=== PATIENT | female | born 1955 | race Caucasian/White ===

== ENCOUNTER → 2017-07-25 10:32 | Outpatient (CLI) | payer OTHER, SELFPAY ==
[2017-07-25 12:44] LABS: AST(SGOT) 19 U/L (15-37); Alanine Aminotransfer ALT/SGPT 35 U/L (13-56); Albumin, Serum 3.5 g/dL (3.2-5.0); Alkaline Phosphatase 178 U/L (45-117); Bilirubin, Direct 0.19 mg/dL (0.00-0.30); Cholesterol 231 mg/dL (200); High Density Lipoprotein 68 mg/dL; Protein, Total 7.5 g/dL (6.4-8.2); Triglycerides 121 mg/dL; Very Low Density Lipoprotein 24 mg/dL (5-40)
== END ==
PROVIDERS: Family Provider Family Medicine; PCP Family Medicine; Visit Provider Internal Medicine Cardiovascular Disease
DX: E78.5 Hyperlipidemia, unspecified (principal); Z79.899 Other long term (current) drug therapy
CPT/HCPCS: 36415; 80061; 80076

== ENCOUNTER → 2018-01-26 10:49 | Outpatient (CLI) | payer OTHER, SELFPAY ==
[2018-01-26 12:31] LABS: Microalbumin:Creatinine Ratio 9.8 mg/g CRE (<30 mg/g CRE)
[2018-01-26 12:36] LABS: Thyroid Stim Hormone (TSH) 1.22 uIU/mL (0.358-3.74)
== END ==
LOC: MTLAB 10:52
PROVIDERS: Family Provider Family Medicine; PCP Family Medicine; Visit Provider Family Medicine
DX: E11.9 Type 2 diabetes mellitus without complications (principal); E03.9 Hypothyroidism, unspecified
CPT/HCPCS: 36415; 82043; 82570; 84443

== ENCOUNTER → 2018-08-17 12:14 | Outpatient (CLI) | payer BC, SELFPAY ==
[2018-08-17 11:51] VITALS: BMI 38.4
[2018-08-17 13:05] LABS: AST(SGOT) 21 U/L (15-37); Alanine Aminotransfer ALT/SGPT 27 U/L (13-56); Albumin, Serum 3.7 g/dL (3.2-5.0); Alkaline Phosphatase 166 U/L (45-117); Bilirubin, Direct 0.23 mg/dL (0.00-0.30); Cholesterol 221 mg/dL (200); Globulin 4.1 g/dL (2.2-4.2); High Density Lipoprotein 71 mg/dL; Protein, Total 7.8 g/dL (6.4-8.2); Triglycerides 212 mg/dL; Very Low Density Lipoprotein 42 mg/dL (5-40)
== END ==
PROVIDERS: Family Provider Family Medicine; PCP Family Medicine; Referring Provider Internal Medicine Cardiovascular Disease; Visit Provider Internal Medicine Cardiovascular Disease
DX: E78.5 Hyperlipidemia, unspecified (principal)
CPT/HCPCS: 36415; 80061; 80076

== ENCOUNTER → 2018-10-22 16:16 | Outpatient (CLI) | payer BC, SELFPAY ==
[2018-08-17 11:51] VITALS: BMI 38.4
[2018-10-22 18:30] LABS: Alkaline Phosphatase 219 U/L (45-117); GGTP 173 U/L (5-55)
== END ==
LOC: MTLAB 16:17
PROVIDERS: Family Provider Family Medicine; PCP Family Medicine; Referring Provider Family Medicine; Visit Provider Family Medicine
DX: R74.8 Abnormal levels of other serum enzymes (principal)
CPT/HCPCS: 36415; 82977; 84075

== ENCOUNTER → 2018-10-29 11:04 | Outpatient (CLI) | payer BC, SELFPAY ==
[2018-08-17 11:51] VITALS: BMI 38.4
[2018-10-30 20:06] LABS: Alkaline Phosphatase, Serum 191 IU/L (39-117); Bone Fraction 16 % (14-68); Liver Fraction 76 % (18-85)
[2018-11-02 11:40] LABS: Intestinal Fraction 8 % (0-18)
== END ==
LOC: MFPLAB 11:05
PROVIDERS: Family Provider Family Medicine; PCP Family Medicine; Referring Provider Family Medicine; Visit Provider Family Medicine
DX: R74.8 Abnormal levels of other serum enzymes (principal)
CPT/HCPCS: 36415; 84075; 84080

== ENCOUNTER → 2018-11-24 07:47 | Outpatient (CLI) | payer BC, SELFPAY ==
[2018-08-17 11:51] VITALS: BMI 38.4
--- NOTE | 2018-11-24 07:52 | US_ITS ---
STUDY: ABDOMINAL ULTRASOUND - RIGHT UPPER QUADRANT REASON FOR VISIT: Female, 63 years old. Elevated LFTs TECHNIQUE: Ultrasound evaluation of the right upper quadrant was performed with real-time and static gordon-scale imaging. TECHNICAL QUALITY: Adequate. COMPARISON: None. FINDINGS: Liver: The liver measures 17 cm. There is diffusely increased echogenicity of the liver. The bile ducts are within normal limits. There is hepatic color flow. The direction of portal flow is hepatopetal. There is no demonstrated mass lesion. Gallbladder: Not visualized status post cholecystectomy. Common Bile Duct (C.B.D.): The common bile duct measures 5.7 mm. Pancreas: Normal size of the head, body and tail of the pancreas. There is diffusely increased echogenicity of the pancreas which may be consistent with atrophic fatty infiltrated changes or chronic pancreatitis.. There is no demonstrated pancreatic mass or cyst. Right Kidney: Normal size of the right kidney. The right kidney measures 11 x 5.5 x 3.8 cm. Normal renal cortex. The right cortex measures 1.2 cm. There is no demonstrated renal mass or cyst. There is no right hydronephrosis. US/Abdomen Limited IMPRESSION: Hepatomegaly and diffuse fatty infiltration of the liver. Status post cholecystectomy Electronically Signed: Boom Ling MD at 16:56 EDT , Service support ,
== END ==
PROVIDERS: Family Provider Family Medicine; PCP Family Medicine; Referring Provider Family Medicine; Visit Provider Family Medicine
DX: R74.8 Abnormal levels of other serum enzymes (principal)
CPT/HCPCS: 76705

== ENCOUNTER → 2018-12-25 14:23 | Outpatient (CLI) | payer BC, SELFPAY ==
[2018-08-17 11:51] VITALS: BMI 38.4
[2018-12-25 16:28] LABS: AST(SGOT) 21 U/L (15-37); Alanine Aminotransfer ALT/SGPT 38 U/L (13-56); Albumin, Serum 3.6 g/dL (3.2-5.0); Alkaline Phosphatase 179 U/L (45-117); Cholesterol 221 mg/dL (200); GGTP 93 U/L (5-55); Globulin 4.1 g/dL (2.2-4.2); High Density Lipoprotein 77 mg/dL; Protein, Total 7.7 g/dL (6.4-8.2); Triglycerides 173 mg/dL; Very Low Density Lipoprotein 35 mg/dL (5-40)
[2018-12-29 13:58] LABS: ANTINUCLEAR ANTIBODIES DIRECT Negative (Negative); Anti-Mitochondrial AB <20.0 Units (0.0-20.0); Anti-Smooth Muscle ABS 3 Units (0-19)
== END ==
LOC: MTLAB 14:24
PROVIDERS: Family Provider Family Medicine; PCP Family Medicine; Referring Provider Internal Medicine Gastroenterology; Visit Provider Internal Medicine Gastroenterology
DX: K75.9 Inflammatory liver disease, unspecified (principal); E78.5 Hyperlipidemia, unspecified
CPT/HCPCS: 36415; 80061; 80076; 82977; 83516; 86038

== ENCOUNTER → 2019-06-04 09:44 | Outpatient (CLI) | payer BC, SELFPAY ==
[2019-04-01 11:08] VITALS: BMI 40.1
[2019-06-04 13:18] LABS: Anion Gap 7 (5-15); BUN 23 mg/dL (7-18); BUN/Creat Ratio 20.7 RATIO (10-20); Calcium,Total 9.9 mg/dL (8.5-10.1); Chloride 101 mmol/L (98-107); Creatinine, Serum 1.11 mg/dL (0.55-1.02); EST Glomerular Filtration Rate 52 mL/min (>60); Est Glom Filt Rate - Afr Amer 63 mL/min (>60); Glucose 168 mg/dL (74-106); Potassium 3.8 mmol/L (3.5-5.1); Sodium Level 136 mmol/L (136-145)
== END ==
LOC: MFPLAB 09:45
PROVIDERS: Family Provider Family Medicine; PCP Family Medicine; Referring Provider Family Medicine; Visit Provider Family Medicine
DX: E11.9 Type 2 diabetes mellitus without complications (principal)
CPT/HCPCS: 36415; 80048

== ENCOUNTER → 2019-06-17 09:51 | Outpatient (CLI) | payer BC, SELFPAY ==
[2019-04-01 11:08] VITALS: BMI 40.1
--- NOTE | 2019-06-17 09:53 | ECHOCS_ITS ---
Reason For Study: DYSPNEA/SOB Procedure This was a 2D Doppler, Color Flow transthoracic echocardiogram. The study was technically difficult. Due to body habitus. Contrast injection was performed. Exam performed in department. Left Ventricle Normal size and thickness. The estimated ejection fraction is 65 %. Stage 1 diastolic dysfunction. No regional wall motion abnormalities noted. Right Ventricle Normal size and thickness. Normal systolic function. Atria The left atrium is mildly enlarged. Normal right atrium. Normal atrial septum. Mitral Valve The mitral valve is structurally normal. No prolapse or stenosis seen. Tricuspid Valve Normal tricuspid valve. Trivial tricuspid valve insufficiency. Right ventricular systolic pressure estimated to be 25 mmHg. Aortic Valve Trisinus/trileaflet aortic valve. Normal aortic valve. Pulmonic Valve Normal pulmonic valve. Great Vessels Normal aortic root. Normal arch. Normal inferior vena cava. Inferior vena cava collapse with sniff. Pericardium/Pleural No pericardial effusion. Medication 22 gauge I.V. with prn adaptor inserted into left arm. Diluted definity 4.0ml given slow IV push to enhance endocardial definition. MMode/2D Measurements & Calculations LVIDd: 4.8 cm IVSd: 0.97 cm Ao root diam: 3.3 cm LVIDs: 3.1 cm LVPWd: 1.1 cm RVDd: 3.1 cm FS: 34.5 % LAV(MOD-bp): 69.9 ml LA A4 area: 23.3 cm2 LA dimension(2D): 3.8 cm LAV(MOD-bp) Indexed: 34.4 ml/m2 LAV(MOD-sp2): 62.7 ml LAV(MOD-sp4): 74.7 ml RA A4 area: 14.5 cm2 Time Measurements MV dec time: 0.21 sec Doppler Measurements & Calculations MV E max pierce: 86.3 cm/sec Lat Peak E' Pierce: 10.1 cm/sec Med Peak E' Pierce: 6.2 cm/sec MV A max pierce: 91.4 cm/sec E/E' lat: 8.5 E/E' med: 13.9 MV E/A: 0.94 Ao V2 max: 161.2 cm/sec LV V1 max: 104.2 cm/sec PA V2 max: 111.5 cm/sec Ao max P.4 mmHg LV V1 max P.3 mmHg Ao V2 mean: 106.9 cm/sec LV V1 mean P.4 mmHg Ao mean P.3 mmHg LV V1 mean: 73.7 cm/sec Ao V2 VTI: 40.8 cm LV V1 VTI: 29.5 cm TR max pierce: 221.9 cm/sec TR max P.7 mmHg Interpretation Summary The estimated ejection fraction is 65 %. Stage 1 diastolic dysfunction. The left atrium is mildly enlarged. Trivial tricuspid valve insufficiency. Right ventricular systolic pressure estimated to be 25 mmHg. Compared to echo report dated 11/09/2015, no appreciable changes noted. The study was technically difficult. Contrast injection was performed. Ordering Physician: Kenan Whitehead Referring Physician: Janneth Frederick Performed By: Loly Charlton RDCS, RVT
== END ==
LOC: CVS 09:53
PROVIDERS: Family Provider Family Medicine; PCP Family Medicine; Referring Provider Internal Medicine Cardiovascular Disease; Visit Provider Internal Medicine Cardiovascular Disease
DX: R06.00 Dyspnea, unspecified (principal); R06.02 Shortness of breath; I10 Essential (primary) hypertension; G47.33 Obstructive sleep apnea (adult) (pediatric); E66.9 Obesity, unspecified
CPT/HCPCS: 93306; Q9957; A4216; C8929

== ENCOUNTER → 2019-06-25 09:31 | Outpatient (CLI) | payer BC, SELFPAY ==
[2019-04-01 11:08] VITALS: BMI 40.1
--- NOTE | 2019-06-25 09:32 | STEWCON_ITS ---
Reason For Study: Dyspnea On Exertion Stress Results Protocol: Modified [place]ar Protocol With Definity Maximum Predicted HR: 155 bpm Target HR: 132 bpm % Maximum Predicted HR: 82 % DurationHeart Rate Stage (mm:ss) (bpm) BP Comment Baseline 71 148/70No Chest Pain; 3 ML Diluted Definity Given Modified [place] Protocol Stage 0 3:00 106 172/76No Chest Pain; Mild Dyspnea Modified [place] Protocol Stage 1/2 3:00 109 184/70No Chest Pain; Moderate Dyspnea Modified [place] Protocol Stage 1 3:00 117 210/74No Chest Pain; Moderate To Severe Dyspnea Modified [place] Protocol Stage 2 0:12 127 / No Chest Pain; Severe Dyspnea Recovery 74 154/74No Chest Pain; No Dyspnea Stress Duration: 9:12 mm:ss Maximum Stress HR: 127 bpm METS: 4 Baseline Echocardiogram Findings The estimated ejection fraction is 65 %. Stress Echo Wall motion Data Resting WM Intermediate WM Stress WM Resting Wall Motion Wall Motion Stress No regional wall motion No regional wall motion abnormalities noted. abnormalities noted. EKG Data The baseline ECG displays normal sinus rhythm. During stress, there were no ST or T wave changes noted to suggest ischemia. No clinical angina was noted. No arrhythmias noted. Interpretation Summary The estimated ejection fraction is 65 %. Normal, adequate, modified [place]ar treadmill echocardiogram. Negative for ischemia by EKG and echocardiographic criteria. No anginal symptoms noted. No arrhythmias noted. Hypertensive blood pressure response to exercise. Average exercise capacity for age. Final LVEF is 75%. Test terminated due to dyspnea. Decrease sensitivity due to poor echo windows requiring Definity agent. Patient tolerated procedure well. The study was technically difficult. Contrast injection was performed. Ordering Physician: Kenan Whitehead Referring Physician: Janneth Frederick Performed By: Bella Taylor, BREANA, RVT
== END ==
LOC: CVS 09:32
PROVIDERS: Family Provider Family Medicine; PCP Family Medicine; Referring Provider Internal Medicine Cardiovascular Disease; Visit Provider Internal Medicine Cardiovascular Disease
DX: R06.00 Dyspnea, unspecified (principal); R06.02 Shortness of breath; I10 Essential (primary) hypertension; E78.5 Hyperlipidemia, unspecified; R94.31 Abnormal electrocardiogram [ECG] [EKG]
CPT/HCPCS: 93017; 93350; Q9957; A4216; C8928

== ENCOUNTER → 2019-11-01 16:16 | Outpatient (CLI) | payer BC, SELFPAY ==
[2019-04-01 11:08] VITALS: BMI 40.1
--- NOTE | 2019-11-01 16:19 | RAD_ITS ---
HISTORY: Fall yesterday. Pain in fingers. Findings: An oblique fracture is present through the distal diaphysis of the fifth metacarpal. Bony alignment is normal. Joint spaces are preserved. No foreign bodies are present. Soft tissue swelling is present. RAD/Finger(s) Min 2 Views IMPRESSION: Oblique fracture through the distal diaphysis of the fifth metacarpal at 0211 Reported and signed by: Hunter Michele MD Electronically Signed: Hunter Michele MD at 2:10 EDT Tel , Service support ,
== END ==
LOC: MTLAB 16:18 → MTRAD 16:18
PROVIDERS: PCP Family Medicine; Referring Provider Family Medicine; Visit Provider Family Medicine
DX: S69.90XA Unspecified injury of unspecified wrist, hand and finger(s), initial encounter (principal)
CPT/HCPCS: 73140

== ENCOUNTER → 2020-03-24 11:10 | Outpatient (CLI) | payer BC, SELFPAY ==
[2019-04-01 11:08] VITALS: BMI 40.1
--- NOTE | 2020-03-24 11:42 | BI_ITS ---
MAMMOGRAPHY - BILATERAL SCREENING REASON FOR EXAM: Female, 65 years old. Routine annual screening examination. PERTINENT HISTORY: Non-contributory. TECHNIQUE: Digital bilateral breast loli (3D mammographic acquisition) in the CC and MLO projections. 2-D mediolateral oblique (MLO) and craniocaudad (CC) views of both breasts were obtained. CAD: Full Field Digital Mammography with Computer Added Detection was performed. COMPARISON: Comparison is made with prior study dated 02/09/2015 and 06/04/2013. FINDINGS: Breast Composition: The breasts are almost entirely fatty. There are no dominant masses or suspicious calcifications. Stable small benign appearing axillary lymph. No other significant abnormalities are identified. There has been no significant change since the prior study. BI/SCREEN MAMM (CAD) W/LOLI BILAT IMPRESSION: Stable bilateral screening mammogram. Yearly follow-up mammogram recommended. (A) ASSESSMENT CATEGORY: BIRADS Category 2: Benign. A letter regarding these results will be sent to the patient by the facility within 30 days. Approximately 10% of breast cancers are not detected by mammography. A normal mammogram should not delay biopsy of a clinically suspicious abnormality. [id number] Electronically Signed: Albin Pantoja, at 12:53 EDT , Service support ,
[2020-03-24 12:28] LABS: Hemoglobin A1c 7.6 % (3.8-5.6)
[2020-03-24 13:11] LABS: AST(SGOT) 23 U/L (15-37); Alanine Aminotransfer ALT/SGPT 35 U/L (13-56); Anion Gap 6 (5-15); BUN 19 mg/dL (7-18); Calcium,Total 10.2 mg/dL (8.5-10.1); Chloride 104 mmol/L (98-107); Cholesterol 238 mg/dL (200); EST Glomerular Filtration Rate 59 mL/min (>60); Est Glom Filt Rate - Afr Amer 72 mL/min (>60); Glucose 174 mg/dL (74-106); High Density Lipoprotein 69 mg/dL; Potassium 4.2 mmol/L (3.5-5.1); Sodium Level 139 mmol/L (136-145); T4 Total, Thyroxin 10.5 ug/dL (4.8-13.9); Thyroid Stim Hormone (TSH) 1.26 uIU/mL (0.358-3.74); Triglycerides 176 mg/dL; Very Low Density Lipoprotein 35 mg/dL (5-40)
[2020-03-24 16:18] LABS: Microalbumin,Random Urine 15.2 mg/L (NO RANGE EST.); Microalbumin:Creatinine Ratio 9.7 mg/g CRE (<30 mg/g CRE)
== END ==
PROVIDERS: PCP Family Medicine; Referring Provider Family Medicine; Visit Provider Family Medicine
DX: Z12.31 Encounter for screening mammogram for malignant neoplasm of breast (principal); E11.9 Type 2 diabetes mellitus without complications; E78.5 Hyperlipidemia, unspecified; E03.9 Hypothyroidism, unspecified; E55.9 Vitamin D deficiency, unspecified
CPT/HCPCS: 77063; 77067; 80048; 80061; 82043; 82306; 82570; 83036; 84436; 84443; 84450; 84460

== ENCOUNTER 2021-06-07 09:12 | Outpatient (CLI) | payer BC, SELFPAY ==
[2021-06-07 10:53] LABS: AST(SGOT) 20 U/L (15-37); Alanine Aminotransfer ALT/SGPT 40 U/L (13-56); Albumin, Serum 3.2 g/dL (3.2-5.0); Alkaline Phosphatase 191 U/L (45-117); Anion Gap 8 (5-15); BUN 18 mg/dL (7-18); BUN/Creat Ratio 17.1 RATIO (10-20); Bilirubin, Direct 0.23 mg/dL (0.00-0.30); Calcium,Total 9.8 mg/dL (8.5-10.1); Chloride 100 mmol/L (98-107); Cholesterol 230 mg/dL (200); Creatinine, Serum 1.05 mg/dL (0.55-1.02); EST Glomerular Filtration Rate 56 mL/min (>60); Est Glom Filt Rate - Afr Amer 67 mL/min (>60); Globulin 4.5 g/dL (2.2-4.2); Glucose 232 mg/dL (74-106); High Density Lipoprotein 64 mg/dL; Potassium 3.7 mmol/L (3.5-5.1); Protein, Total 7.7 g/dL (6.4-8.2); Sodium Level 139 mmol/L (136-145); T4 Total, Thyroxin 11.1 ug/dL (4.8-13.9); Thyroid Stim Hormone (TSH) 1.17 uIU/mL (0.358-3.74); Triglycerides 202 mg/dL; Very Low Density Lipoprotein 40 mg/dL (5-40)
== END 2021-06-07 23:59 | disposition short-term general hospital (02) ==
LOC: MTLAB 09:13
PROVIDERS: PCP Family Medicine; Referring Provider Family Medicine; Visit Provider Family Medicine
DX: E03.9 Hypothyroidism, unspecified (principal); E11.9 Type 2 diabetes mellitus without complications
CPT/HCPCS: 36415; 80048; 80061; 80076; 84436; 84443

== ENCOUNTER 2021-09-17 10:32 | Outpatient (CLI) | payer BC, SELFPAY ==
[2021-09-17 12:42] LABS: Microalbumin,Random Urine 16.6 mg/L (NO RANGE EST.); Microalbumin:Creatinine Ratio 12.9 mg/g CRE (<30 mg/g CRE)
[2021-09-17 12:43] LABS: AST(SGOT) 22 U/L (15-37); Alanine Aminotransfer ALT/SGPT 35 U/L (13-56); Albumin, Serum 3.5 g/dL (3.2-5.0); Alkaline Phosphatase 176 U/L (45-117); Anion Gap 6 (5-15); BUN 21 mg/dL (7-18); BUN/Creat Ratio 18.6 RATIO (10-20); Calcium,Total 9.9 mg/dL (8.5-10.1); Chloride 103 mmol/L (98-107); Creatinine, Serum 1.13 mg/dL (0.55-1.02); EST Glomerular Filtration Rate 51 mL/min (>60); Est Glom Filt Rate - Afr Amer 62 mL/min (>60); Globulin 4.1 g/dL (2.2-4.2); Glucose 188 mg/dL (74-106); Potassium 3.9 mmol/L (3.5-5.1); Protein, Total 7.6 g/dL (6.4-8.2); Sodium Level 137 mmol/L (136-145); T4 Total, Thyroxin 11.4 ug/dL (4.8-13.9); Thyroid Stim Hormone (TSH) 1.19 uIU/mL (0.358-3.74)
== END 2021-09-17 23:59 | disposition home or self-care (01) ==
LOC: MFPLAB 10:33
PROVIDERS: PCP Family Medicine; Visit Provider Family Medicine
DX: E11.9 Type 2 diabetes mellitus without complications (principal); E03.9 Hypothyroidism, unspecified
CPT/HCPCS: 36415; 80048; 80076; 82043; 82570; 84436; 84443

== ENCOUNTER → 2021-10-01 | Outpatient (CLI) | payer BC, SELFPAY ==
[2021-10-01 12:50] LABS: Alkaline Phosphatase 180 U/L (45-117)
== END | disposition home or self-care (01) ==
LOC: LAB 11:33
PROVIDERS: PCP Family Medicine; Visit Provider Family Medicine
DX: R74.8 Abnormal levels of other serum enzymes (principal)
CPT/HCPCS: 36415; 84075

== ENCOUNTER → 2021-10-03 | Outpatient (CLI) | payer BC, SELFPAY ==
[2021-10-05 16:19] LABS: Alkaline Phosphatase, Serum 183 IU/L (44-121); Bone Fraction 12 % (14-68); Liver Fraction 83 % (18-85)
[2021-10-05 20:07] LABS: Intestinal Fraction 5 % (0-18)
== END | disposition home or self-care (01) ==
LOC: LAB.FUTURE 09:12
PROVIDERS: PCP Family Medicine; Referring Provider Family Medicine; Visit Provider Family Medicine
DX: R74.8 Abnormal levels of other serum enzymes (principal)
CPT/HCPCS: 84075; 84080

== ENCOUNTER → 2021-10-25 | Outpatient (CLI) | payer BC, SELFPAY ==
--- NOTE | 2021-10-25 07:56 | BI_ITS ---
MAMMOGRAPHY - BILATERAL SCREENING REASON FOR EXAM: Female, 66 years old. Routine annual screening examination. PERTINENT HISTORY: Non-contributory. TECHNIQUE: Digital bilateral breast loli (3D mammographic acquisition) in the CC and MLO projections. 2-D mediolateral oblique (MLO) and craniocaudad (CC) views of both breasts were obtained. CAD: Full Field Digital Mammography with Computer Added Detection was performed. COMPARISON: Screening mammogram from 03/24/2020, 02/09/2015, 06/04/2013, 02/26/2012. FINDINGS: Breast Composition: There are scattered areas of fibroglandular density. There are no dominant masses or suspicious calcifications. No other significant abnormalities are identified. There has been no significant change since the prior study. BI/SCRN MAMM (CAD)W/LOLI BILAT IMPRESSION: Stable bilateral screening mammogram. Yearly follow-up mammogram recommended. (A) ASSESSMENT CATEGORY: BIRADS Category 1: Negative. A letter regarding these results will be sent to the patient by the facility within 30 days. Approximately 10% of breast cancers are not detected by mammography. A normal mammogram should not delay biopsy of a clinically suspicious abnormality. [id number] Electronically Signed: Aneesh Lowe, at 16:59 EDT ,
== END | disposition home or self-care (01) ==
LOC: OPBI 07:54
PROVIDERS: PCP Family Medicine; Referring Provider Family Medicine; Visit Provider Family Medicine
DX: Z12.31 Encounter for screening mammogram for malignant neoplasm of breast (principal)
CPT/HCPCS: 77063; 77067

== ENCOUNTER → 2021-12-20 | Outpatient (CLI) | payer BC, SELFPAY ==
--- NOTE | 2021-12-20 13:03 | RAD_ITS ---
EXAM: XR LUMBOSACRAL SPINE, 4 OR 5 VIEWS CLINICAL INDICATION: BACK PAIN TECHNIQUE: Frontal, lateral and bilateral oblique views of the lumbar spine. This report was created using [employer] report [employer] technology. COMPARISON: None. FINDINGS: VERTEBRAE: Slight anterior spondylolisthesis of L4 on L5 and L5 on S1 on a degenerative basis. Severe bilateral multilevel facet arthropathy in the lower lumbar spine. Preserved vertebral body height. No fracture. Preservation of the normal lumbar lordosis. DISC SPACES: No acute findings. Disc spaces are maintained. GASTROINTESTINAL TRACT: Unremarkable as visualized. Included bowel gas pattern is non-obstructive. RAD/L/S Spine Min 4 Views IMPRESSION: 1. Slight anterior spondylolisthesis of L4 on L5 and L5 on S1 on a degenerative basis. 2. Severe bilateral multilevel facet arthropathy in the lower lumbar spine. Electronically Signed: Dipesh Chavez MD at 4:11 EDT ,
--- NOTE | 2021-12-20 13:10 | RAD_ITS ---
EXAM: XR SACRUM AND COCCYX, 2 OR MORE VIEWS CLINICAL INDICATION: BACK PAIN TECHNIQUE: Frontal and lateral views of the sacrum and coccyx. This report was created using [employer] report [employer] technology. COMPARISON: None. FINDINGS: SACRUM/COCCYX: Unremarkable sacrum and coccyx. No displaced fracture. No destructive or sclerotic lesions. Note that overlapping bowel shadows may however obscure fine detail in the frontal view. Sacroiliac joints are unremarkable. VERTEBRAE: Severe bilateral vertebral facet arthropathy L4-5 and L5-S1. Slight anterior spondylolisthesis of L4 on L5 and L5-S1 on a degenerative basis. SOFT TISSUES: Unremarkable. No soft tissue swelling or gas. RAD/Sacrum-Coccyx min 2 Views IMPRESSION: 1. Severe bilateral vertebral facet arthropathy L4-5 and L5-S1. 2. Unremarkable sacrum and coccyx. Electronically Signed: Dipesh Chavez MD at 4:12 EDT ,
== END | disposition home or self-care (01) ==
PROVIDERS: PCP Family Medicine; Referring Provider Family Medicine; Visit Provider Family Medicine
DX: M54.50 Low back pain, unspecified (principal)
CPT/HCPCS: 72110; 72220

== ENCOUNTER → 2022-03-02 | Outpatient (CLI) | payer BC, SELFPAY ==
--- NOTE | 2022-03-02 07:45 | MRI_ITS ---
STUDY: MRI LUMBAR SPINE WITHOUT CONTRAST REASON FOR EXAM: Female, 66 years old. LOW BACK PAIN TECHNIQUE: Standardized fat and water weighted pulse sequences were obtained in the sagittal and axial planes. COMPARISON: Radiographs 12/20/2021. FINDINGS: No fracture or concerning osseous lesions. Small benign hemangioma upper central aspect L3 vertebral body. Mild 2 mm degenerative anterolisthesis of L4 on L5 and L5 on S1. [place] terminates at the level of the L1 inferior endplate with normal contour and signal. The thecal sac terminates at the upper S2 level. At L1-2 and L2-3, mild facet degeneration causes no significant narrowing of the spinal canal or foramina. At L3-4, severe bilateral facet degeneration with degenerative buckling of the ligamentum flavum, worse on the right, combines with diffuse disc bulge to cause focal moderate to severe narrowing of the right subarticular zone. Displacing and possibly compressing traversing right L4 nerve root. Only mild foraminal narrowing. At L4-5, marked bilateral facet degeneration causes only mild narrowing of the spinal canal and foramina. At L5-S1, marked bilateral facet degeneration, worse on the left, causes only mild narrowing. The paraspinal soft tissues are unremarkable. MRI/Spine Lumbar (Routine) IMPRESSION: Severe facet degeneration lower lumbar spine. This causes moderate to severe narrowing of the right subarticular zone at L3-4, possibly compressing the traversing right L4 nerve root. No other nerve root impingement. Mild degenerative anterolisthesis at L4-5 and L5-S1; consider flexion-extension views to assess for mechanical instability. Electronically Signed: Andre Portillo MD at 2:27 EDT Reading Location ID and State: 1954 [place] Tel , Service support ,
== END | disposition home or self-care (01) ==
LOC: MRI 07:19
PROVIDERS: PCP Family Medicine; Visit Provider Anesthesiology Pain Medicine
DX: M54.16 Radiculopathy, lumbar region (principal)
CPT/HCPCS: 72148

== ENCOUNTER → 2022-04-01 | Outpatient (CLI) | payer BC, SELFPAY ==
[2022-04-01 13:52] LABS: Anion Gap 6 (5-15); BUN 29 mg/dL (7-18); BUN/Creat Ratio 25.4 RATIO (10-20); Calcium,Total 10.4 mg/dL (8.5-10.1); Chloride 103 mmol/L (98-107); Cholesterol 243 mg/dL (200); Creatinine, Serum 1.14 mg/dL (0.55-1.02); EST Glomerular Filtration Rate 50 mL/min (>60); Est Glom Filt Rate - Afr Amer 61 mL/min (>60); Glucose 138 mg/dL (74-106); High Density Lipoprotein 68 mg/dL; Potassium 4.2 mmol/L (3.5-5.1); Sodium Level 138 mmol/L (136-145); Triglycerides 166 mg/dL; Very Low Density Lipoprotein 33 mg/dL (5-40)
== END | disposition home or self-care (01) ==
LOC: MFPLAB 10:57
PROVIDERS: PCP Family Medicine; Visit Provider Family Medicine
DX: E11.69 Type 2 diabetes mellitus with other specified complication (principal); E11.59 Type 2 diabetes mellitus with other circulatory complications; I10 Essential (primary) hypertension; E78.5 Hyperlipidemia, unspecified
CPT/HCPCS: 36415; 80048; 80061

== ENCOUNTER 2022-04-08 12:00 | Outpatient (RCR) | payer BC, SELFPAY ==
--- NOTE | 2021-12-31 18:00 | HP.PTEVAL ---
Patient's Visit Information REY CHATMAN is a 66 year old F referred to Physical Therapy by Dr. Janneth Frederick MD with a diagnosis of LOW BACK PAIN. Date of Evaluation: 12/31/21 Physical Therapist: Kemal Greene, PT, Cert MDT, OCS - Visit Plan Frequency: 2x /Week Duration: 6 Weeks Plan: PT INTERVETIONS DLS,POSTURAL EXS,HIP STRENGTHNENING AND MODALTIES PRN - Subjective This 66 y/o female presents to physical therapy with low back pain. Patient woke up in the morning around October and developed LBP . Initially. patient had pain right glut and eventually symmetrical L-S/SI region. Seen DR salas x-rays showed severe DDD/facet . Patient seen DR Espitia and want possible MRI and possible epidural injections. Aggravating factors AM ,standing and walking ,lifting. Alleviating factors rest sitting. Coughing/sneezing+. Bowel/bladder -. Denies paresthesia/tingling. No symptoms in legs. Patient able to sleeping good. No prior treatment. No prior trauma. SOCIAL: single. 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 - Pain Bilateral Back Pain Intensity (Out of 10): 4 Pain Intensity Range: 10 - Objective POSTURE: mild forward posture. GAIT: reciprocal pattern. SYMMTRIES: align. PALPATION: unremarkable. FLEXABILITY: hamstrings WL. NEURO: intact ,denies paresthesia/tingling reflexes L3-4,L4-5,L5-S1 2/3. LUMBAR ROM: flexion min loss ,extension min loss ,side glides min loss. MMT: quads/hams 4/5 hip flexion( peak force) 12.8,amos 4/5 - Special Tests L/S Slump test left side: Negative L/S Slump test right side: Negative L/S Left Straight Leg Raise: Negative Lumbar Standing: Flexion - Mechanical Response: No effect Lumbar Standing: Flexion - Symptoms During Testing: No effect Lumbar Standing: Flexion - Symptoms After Testing: No effect Lumbar Standing: Extension - Mechanical Response: No effect Lumbar Standing: Extension - Symptoms During Testing: No effect Lumbar Standing: Extension - Symptoms After Testing: No effect Lumbar Standing: Right Side Glides - Mechanical Response: No effect Lumbar Standing: Right Side [place] - Symptoms During Testing: No effect Lumbar Standing: Right Side [place] - Symptoms After Testing: No effect Lumbar Standing: Left Side [place] - Mechanical Response: No effect Lumbar Standing: Left Side [place] - Symptoms During Testing: No effect Lumbar Standing: Left Side [place] - Symptoms After Testing: No effect - Balance/Special Test Scores Oswestry Low Back Score: 15 - Goals Goal 1:: I with HEP for lumbar Goal Time Frame: 4-6 Weeks Goal 2:: Patient to improve lumbar pain 50% to improve function and less pain Goal Time Frame: 4-6 Weeks Goal 3:: 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 Goal Time Frame: 4-6 Weeks Goal 4:: Patient to improve back oswestry score by 5 points to improve function and gait Goal Time Frame: 4-6 Weeks Goal 5:: Patient to improve hip strength by peak force by 5 points to improve function Goal Time Frame: 4-6 Weeks - Rehabilitation Potential Physical Therapy Diagnosis: This patient has lumbar pain with pain during walking ,standing ,unable yoana perform muscular endurance test due to core weakness with symmetrical lumbar thus benefit from skilled PT Rehabilitation Potential: Good - Anticipated Interventions Patient/Client Instruction: Educate patient on: Condition, Plan of Care For the Purpose of:: To decrease pain, To increase ROM, To improve muscle performance and motor function, To improve ability to perform ADL's, To increase tolerance to activity/condition/position, To improve performance and independence with ADL's, To improve ability of physical actions for home/community/work/leisure, To improve health of tissue, To decrease soft tissue restriction, To increase flexibility/ROM, To prevent re-injury Therapeutic Exercise to Include: Strength training, Power training, Body mechanics, Postural training, Flexibilty training, Active ROM, Dynamic Lumbar Stabilization Comment: HIPS For the Purpose of:: To decrease pain, To increase ROM, To improve muscle performance and motor function, To increase tolerance to activity/condition/position, To improve ability of physical actions for home/community/work/leisure, To improve gait and locomotor functions, To improve health of tissue, To decrease soft tissue restriction, To increase flexibility/ROM, To reduce risk of recurrence TENS: Yes IF ES: Yes Cryotherapy (ice pack, ice massage): Yes Thermo therapy (hot pack): Yes Ultrasound (thermal/non thermal): Yes For the Purpose of:: To decrease pain, To increase ROM, To improve nutrient delivery to tissue, To increase oxygenation perfusion, To improve health of tissue, To decrease soft tissue restriction Thank you for the opportunity to evaluate your patient. For Medicare and Medicare HMO plans, please review the plan of care and approve it. It will need to be FAXED BACK to us at [phone] for Medicare purposes. For Medicare only, by signing this I certify the plan of care. Please let me know if there are questions or concerns regarding this plan of care. Physician Signature: Date:
--- NOTE | 2022-03-25 12:59 | HP.PTREVAL ---
Dr. Janneth Frederick MD, It has been my pleasure to treat REY CHATMAN over the last 9 visits for LOW BACK PAIN. Please see the progress note below for an update on the physical therapy plan of care! Subjective: Had MRI showed severe stenosis canal L3-4 ,L2-3. x-rays showed spondylolisthesis 5-[address] Holden and had another injection. See Back specialist not candidate for surgey Objective/Function: REVIEWED WITH PATIENY X-RAYS AND MRI WITH PATIENT. POSTURE: mild forward posture. GAIT: reciprocal pattern mild forward posture. NEURO: denies paresthesia/tingling. MMT: quads/hams 4/5, hip flexion 4-/5 ,ankle 4/5. LUMBAR ROM: flexion WFL ,extension min loss ,side glides WFL Plan Plan: CONT WITH POC. 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 Goal Time Frame: 4-6 Weeks Goal Progress: Progressing Goal 4:: Patient to improve back oswestry score by 5 points to improve function and gait Goal Time Frame: 4-6 Weeks Goal Progress: Progressing Goal 5:: Patient to improve hip strength by peak force by 5 points to improve function Goal Time Frame: 4-6 Weeks Goal Progress: Progressing Anticipated Interventions Patient/Client Instruction: Educate patient on: Condition, Plan of Care For the Purpose of:: To decrease pain, To increase ROM, To improve muscle performance and motor function, To improve ability to perform ADL's, To increase tolerance to activity/condition/position, To improve performance and independence with ADL's, To improve ability of physical actions for home/community/work/leisure, To improve health of tissue, To decrease soft tissue restriction, To increase flexibility/ROM, To prevent re-injury Therapeutic Exercise to Include: Strength training, Power training, Body mechanics, Postural training, Flexibilty training, Active ROM, Dynamic Lumbar Stabilization Comment: HIPS For the Purpose of:: To decrease pain, To increase ROM, To improve muscle performance and motor function, To increase tolerance to activity/condition/position, To improve ability of physical actions for home/community/work/leisure, To improve gait and locomotor functions, To improve health of tissue, To decrease soft tissue restriction, To increase flexibility/ROM, To reduce risk of recurrence TENS: Yes IF ES: Yes Cryotherapy (ice pack, ice massage): Yes Thermo therapy (hot pack): Yes Ultrasound (thermal/non thermal): Yes For the Purpose of:: To decrease pain, To increase ROM, To improve nutrient delivery to tissue, To increase oxygenation perfusion, To improve health of tissue, To decrease soft tissue restriction Please do not hesitate to contact me at [phone] by phone or if you have questions or concerns regarding this new plan of care! Sincerely, Kemal Greene, PT, Cert MDT, OCS
--- NOTE | 2022-05-24 10:28 | HP.PT.NRP ---
REY CHATMAN was seen in my office for initial evaluation on 12/31/21. The following Plan of Care was established for this patient: Initial Frequency: 2x /Week Initial Duration: 6 Weeks Patient/Client Instruction: Educate patient on: Condition, Plan of Care For the Purpose of:: To decrease pain, To increase ROM, To improve muscle performance and motor function, To improve ability to perform ADL's, To increase tolerance to activity/condition/position, To improve performance and independence with ADL's, To improve ability of physical actions for home/community/work/leisure, To improve health of tissue, To decrease soft tissue restriction, To increase flexibility/ROM, To prevent re-injury Therapeutic Exercise to Include: Strength training, Power training, Body mechanics, Postural training, Flexibilty training, Active ROM, Dynamic Lumbar Stabilization For the Purpose of:: To decrease pain, To increase ROM, To improve muscle performance and motor function, To increase tolerance to activity/condition/position, To improve ability of physical actions for home/community/work/leisure, To improve gait and locomotor functions, To improve health of tissue, To decrease soft tissue restriction, To increase flexibility/ROM, To reduce risk of recurrence TENS: Yes IF ES: Yes Cryotherapy (ice pack, ice massage): Yes Thermo therapy (hot pack): Yes Ultrasound (thermal/non thermal): Yes For the Purpose of:: To decrease pain, To increase ROM, To improve nutrient delivery to tissue, To increase oxygenation perfusion, To improve health of tissue, To decrease soft tissue restriction This patient was last seen in our office . Pertinent comments regarding their Physical therapy will appear below: Patient was seen for PT for DLS and postural ex's thus is d/c At this point I will be discontinuing this patient from physical therapy. I would be happy to see this patient again in the future if found appropriate by the physician. Thank you! Kemal Greene, PT, Cert MDT, OCS Balance/Gait/Functional tests - Balance/Special Test Scores Oswestry Low Back Score: 7
== END 2022-04-08 19:00 | disposition home or self-care (01) ==
LOC: PT 12:00
PROVIDERS: PCP Family Medicine; Referring Provider Family Medicine; Visit Provider Family Medicine
DX: M54.50 Low back pain, unspecified (principal)
CPT/HCPCS: 97110; 97162; 97530

== ENCOUNTER → 2022-04-15 | Outpatient (CLI) | payer BC, SELFPAY ==
[2022-04-15 13:36] LABS: Anion Gap 9 (5-15); BUN 25 mg/dL (7-18); BUN/Creat Ratio 22.1 RATIO (10-20); Calcium,Total 10.3 mg/dL (8.5-10.1); Chloride 99 mmol/L (98-107); Creatinine, Serum 1.13 mg/dL (0.55-1.02); EST Glomerular Filtration Rate 51 mL/min (>60); Est Glom Filt Rate - Afr Amer 62 mL/min (>60); Glucose 159 mg/dL (74-106); Potassium 4.2 mmol/L (3.5-5.1); Sodium Level 136 mmol/L (136-145)
[2022-04-15 14:23] LABS: Amphetamine Urine VISTA NEGATIVE (<1000 ng/mL); Barbiturate Urine VISTA NEGATIVE (< 200 ng/mL); Benzodiazepine Urine VISTA NEGATIVE (< 200 ng/mL); Cocaine Urine VISTA NEGATIVE (< 300 ng/mL); Ecstacy Urine VISTA NEGATIVE (< 500 ng/mL); Methadone Urine VISTA NEGATIVE (< 300 ng/mL); PCP Urine VISTA NEGATIVE (< 25 ng/mL); THC Urine VISTA NEGATIVE (< 50 ng/mL); Vista UDS pH Range 6
== END | disposition home or self-care (01) ==
LOC: LAB 12:27
PROVIDERS: PCP Family Medicine; Referring Provider Anesthesiology Pain Medicine; Visit Provider Anesthesiology Pain Medicine
DX: F11.20 Opioid dependence, uncomplicated (principal)
CPT/HCPCS: 36415; 80048; 80307

== ENCOUNTER → 2022-09-25 | Outpatient (CLI) | payer BC, SELFPAY ==
[2022-09-25 13:10] LABS: Microalbumin,Random Urine 6.6 mg/L (NO RANGE EST.)
[2022-09-25 13:36] LABS: AST(SGOT) 24 U/L (15-37); Alanine Aminotransfer ALT/SGPT 40 U/L (13-56); Albumin, Serum 3.5 g/dL (3.2-5.0); Alkaline Phosphatase 163 U/L (45-117); Anion Gap 6 (5-15); BUN 36 mg/dL (7-18); BUN/Creat Ratio 26.9 RATIO (10-20); Bilirubin, Direct 0.14 mg/dL (0.00-0.30); Chloride 103 mmol/L (98-107); Cholesterol 255 mg/dL (200); Creatinine, Serum 1.34 mg/dL (0.55-1.02); EST Glomerular Filtration Rate 42 mL/min (>60); Est Glom Filt Rate - Afr Amer 51 mL/min (>60); Globulin 4.2 g/dL (2.2-4.2); Glucose 174 mg/dL (74-106); High Density Lipoprotein 63 mg/dL; Potassium 3.8 mmol/L (3.5-5.1); Protein, Total 7.7 g/dL (6.4-8.2); Sodium Level 134 mmol/L (136-145); T4 Total, Thyroxin 9.6 ug/dL (4.8-13.9); Thyroid Stim Hormone (TSH) 1.39 uIU/mL (0.358-3.74); Triglycerides 183 mg/dL; Very Low Density Lipoprotein 37 mg/dL (5-40)
== END | disposition home or self-care (01) ==
LOC: MFPLAB 09:51
PROVIDERS: PCP Family Medicine; Visit Provider Family Medicine
DX: E03.9 Hypothyroidism, unspecified (principal); E11.9 Type 2 diabetes mellitus without complications
CPT/HCPCS: 36415; 80048; 80061; 80076; 82043; 82570; 84436; 84443

== ENCOUNTER → 2023-02-18 | Outpatient (CLI) | payer BC, SELFPAY ==
--- NOTE | 2023-02-18 12:10 | RAD_ITS ---
EXAM: XR RIGHT SHOULDER COMPLETE, 2 OR MORE VIEWS CLINICAL INDICATION: RT SHOULDER TECHNIQUE: Two or more views of the right shoulder. COMPARISON: No relevant prior studies available. FINDINGS: BONES/JOINTS: Mild degenerative changes of the acromioclavicular and glenohumeral joints. No acute fracture. No subluxation. Normal alignment. SOFT TISSUES: A faint calcific density in the location of the rotator cuff tendon. RAD/Shoulder min 2 Views IMPRESSION: Mild degenerative changes of the acromioclavicular and glenohumeral joints. Mild basilar tendinitis of the rotator cuff. Electronically Signed: Arben Connelly MD at 0:22 EDT ,
== END | disposition home or self-care (01) ==
LOC: RAD 12:05
PROVIDERS: PCP Family Medicine; Referring Provider Anesthesiology Pain Medicine; Visit Provider Anesthesiology Pain Medicine
DX: M19.011 Primary osteoarthritis, right shoulder (principal); M77.8 Other enthesopathies, not elsewhere classified
CPT/HCPCS: 73030

== ENCOUNTER → 2023-11-03 | Outpatient (CLI) | payer BC, SELFPAY ==
[2023-11-03 15:28] LABS: Protein, Urine (Random) 22.2 mg/dL (<11.9); Protein:Creat Ratio 96 mg/g CRE (0-200)
[2023-11-03 15:58] LABS: AST(SGOT) 34 U/L (15-37); Alanine Aminotransfer ALT/SGPT 46 U/L (13-56); Anion Gap 7 (5-15); BUN 26 mg/dL (7-18); Calcium,Total 9.9 mg/dL (8.5-10.1); Chloride 103 mmol/L (98-107); Cholesterol 240 mg/dL (200); Creatinine, Serum 1.37 mg/dL (0.55-1.02); EST Glomerular Filtration Rate 41 mL/min (>60); Est Glom Filt Rate - Afr Amer 49 mL/min (>60); Glucose 185 mg/dL (74-106); High Density Lipoprotein 65 mg/dL; Potassium 4.5 mmol/L (3.5-5.1); Sodium Level 136 mmol/L (136-145); T4 Total, Thyroxin 11.3 ug/dL (4.8-13.9); Thyroid Stim Hormone (TSH) 2.02 uIU/mL (0.358-3.74); Triglycerides 239 mg/dL; Very Low Density Lipoprotein 48 mg/dL (5-40)
[2023-11-03 16:03] LABS: Hemoglobin A1c 7.4 % (3.8-5.6)
== END | disposition home or self-care (01) ==
LOC: MFPLAB 11:47
PROVIDERS: PCP Family Medicine; Visit Provider Family Medicine
DX: E11.69 Type 2 diabetes mellitus with other specified complication (principal); E11.59 Type 2 diabetes mellitus with other circulatory complications; E03.9 Hypothyroidism, unspecified
CPT/HCPCS: 36415; 80048; 80061; 82570; 83036; 84156; 84436; 84443; 84450; 84460

== ENCOUNTER → 2024-01-07 | Outpatient (CLI) | payer MEDICARE, SELFPAY ==
--- NOTE | 2024-01-07 13:31 | BI_ITS ---
MAMMOGRAPHY - BILATERAL SCREENING REASON FOR EXAM: Female, 68 years old. Routine annual screening examination. PERTINENT HISTORY: Non-contributory. TECHNIQUE: Digital bilateral breast loli (3D mammographic acquisition) in the CC and MLO projections. 2-D mediolateral oblique (MLO) and craniocaudad (CC) views of both breasts were obtained. CAD: Full Field Digital Mammography with Computer Added Detection was performed. COMPARISON: Comparison is made with prior study October 25, 2021 and March 24, 2020. FINDINGS: Breast Composition: There are scattered areas of fibroglandular density. There are no dominant masses or suspicious calcifications. No other significant abnormalities are identified. There has been no significant change since the prior study. BI/SCRN MAMM (CAD)W/LOLI BILAT IMPRESSION: Stable bilateral screening mammogram. Yearly follow-up mammogram recommended. (A) ASSESSMENT CATEGORY: BIRADS Category 1: Negative. A letter regarding these results will be sent to the patient by the facility within 30 days. Approximately 10% of breast cancers are not detected by mammography. A normal mammogram should not delay biopsy of a clinically suspicious abnormality. [id number] Electronically Signed: Albin Pantoja MD at 14:22 EDT ,
--- NOTE | 2024-01-07 13:31 | BD_ITS ---
STUDY: DUAL ENERGY X-RAY ABSORPTIOMETRY / DXA REASON FOR EXAM: Female, 68 years old. M85.89 TECHNIQUE: Bone Mineral Density (BMD) measurements of lumbar spine and bilateral hips were obtained. COMPARISON: None. FINDINGS: Lumbar Spine (L1-L4): g/cm2 (1.083) / T-score (0.3) / Z-score (2.4) Findings are suggestive of normal bone density with a low fracture risk. Left Femur Total: g/cm2 (0.978) / T-score (0.3) / Z-score (1.) Left Femoral Neck: g/cm2 (0.799) / T-score (-0.5) / Z-score (1.3) Right Femur Total: g/cm2 (1.007) / T-score (0.5) / Z-score (2.0) Right Femoral Neck: g/cm2 (0.819) / T-score (-0.3) / Z-score (1.5) BD/Dexa Bone Density Study IMPRESSION: The patient is considered normal as outlined below according to World Benedict Organization (WHO) criteria with a low fracture risk Reference Information: The T-score is the number of standard deviations above or below the standard which is normal for young adults at their peak bone mineral density. The World Health Organization (WHO) interprets the T-scores as follows: Above -1 Normal bone density Between -1 and -2.5 Osteopenia Equal to / or below -2.5 Osteoporosis As a practical clinical guideline, osteopenia may be graded as follows: Mild -1 through -1.5 Moderate -1.6 through -2.0 Severe -2.1 through -2.4 The Z-score is the number of standard deviations above or below age-matched controls. A Z-score of less than -1.5 would be considered abnormal. References: 1. NIH Osteoporosis and Related Bone Diseases www osteo.org 2. International Society for Clinical Densitometry www iscd.org 3. National Osteoporosis Foundation www nof.org Electronically Signed: Albin Pantoja MD at 12:00 EDT ,
[2024-01-07 15:19] LABS: Hematocrit 36.1 % (37-47); Hemoglobin 11.5 g/dL (12.0-15.0); Mean Corp Hgb Conc 31.9 g/dL (32-36); Mean Corpuscular Volume 87.8 fL (81-99); Mean Platelet Vol. 10.2 fl (6.2-12.0); Platelet Count 281 K/mm3 (150-450); RBC Distribution Width CV 13.7 % (11.6-14.6); RBC Distribution Width SD 44.2 fl (35.1-43.9); Red Blood Count 4.11 M/mm3 (4.2-5.4); White Blood Count 11.9 K/mm3 (4.4-11.0)
== END | disposition home or self-care (01) ==
LOC: OPBD 13:11
PROVIDERS: PCP Family Medicine; Referring Provider Family Medicine; Visit Provider Family Medicine
DX: Z12.31 Encounter for screening mammogram for malignant neoplasm of breast (principal); M85.89 Other specified disorders of bone density and structure, multiple sites; D64.9 Anemia, unspecified
CPT/HCPCS: 36415; 77063; 77067; 77080; 85027

== ENCOUNTER → 2024-05-13 | Outpatient (CLI) | payer MEDICARE, SELFPAY ==
--- NOTE | 2024-05-13 09:55 | RAD_ITS ---
INDICATION: Spondylosis without myelopathy or radiculopathy, lumbosacral sherri EXAMINATION/TECHNIQUE: X-RAY - XR Hips Bilateral with Pelvis when performed; Min 5 Views COMPARISON: FINDINGS: PELVIC BONES: No displaced fracture, destructive or sclerotic lesions. Note that overlapping bowel shadows may however obscure fine detail. Sacroiliac joints are unremarkable. No widening of the pubic symphysis. HIPS: The articular structures are unremarkable. No displaced fracture seen in this frontal view. SOFT TISSUES: No soft tissue swelling or gas. RAD/Hips B/L min 2 views w/ Pelvis IMPRESSION: No evidence of displaced pelvic or hip fracture. Electronically Signed: Ramone Isbell DO at 8:58 EST Reading Location ID and State: [facility] / [place] Tel [phone], Service support ,
--- NOTE | 2024-05-13 09:55 | RAD_ITS ---
INDICATION: Spondylosis without myelopathy or radiculopathy, lumbosacral sherri EXAMINATION/TECHNIQUE: X-RAY - XR Sacrum/Coccyx Min 2 Views COMPARISON: FINDINGS: SACRUM/COCCYX: No displaced fracture, destructive or sclerotic lesions. Note that overlapping bowel shadows may however obscure fine detail in the frontal view. SACRO-ILIAC JOINTS: The articular structures are unremarkable. SOFT TISSUES: No soft tissue swelling or gas. RAD/Sacrum-Coccyx min 2 Views IMPRESSION: Unremarkable sacro-coccygeal spine. Electronically Signed: Ramone Isbell DO at 8:55 EST Reading Location ID and State: [facility] / [place] Tel [phone], Service support ,
--- NOTE | 2024-05-13 09:55 | RAD_ITS ---
STUDY: X-RAY - LUMBAR SPINE REASON FOR EXAM: Female, 69 years old. Spondylosis without myelopathy or radiculopathy, lumbosacral sherri TECHNIQUE: 2 view(s) of the lumbar spine were obtained. COMPARISON: None FINDINGS: Normal lumbar lordosis. There is no substantial scoliosis. Grade 1 spondylolisthesis at L4-5 and L5-S1. Normal vertebral bodies with mild spurring at the endplates. Normal disc space heights. The soft tissue structures are unremarkable. Surgical clips in the right upper quadrant. RAD/Lumbar Spine 2 or 3 Views IMPRESSION: Mild degenerative changes of the lumbar spine. Grade 1 spondylolisthesis at L4-5 and L5-S1. Electronically Signed: Ramone Isbell DO at 9:01 EST Reading Location ID and State: [facility] / [place] Tel [phone], Service support ,
== END | disposition home or self-care (01) ==
LOC: RAD 09:39
PROVIDERS: PCP Family Medicine; Referring Provider Anesthesiology Pain Medicine; Visit Provider Anesthesiology Pain Medicine
DX: M25.551 Pain in right hip (principal); M25.552 Pain in left hip; M46.1 Sacroiliitis, not elsewhere classified; M47.817 Spondylosis without myelopathy or radiculopathy, lumbosacral region
CPT/HCPCS: 72100; 72220; 73521

== ENCOUNTER → 2024-12-31 | Outpatient (CLI) | payer MEDICARE, SELFPAY ==
[2024-12-31 16:03] LABS: Hematocrit 33.9 % (37-47); Hemoglobin 11.2 g/dL (12.0-15.0); Immature Granulocytes Count 0.050 X10^3/uL (0.0-0.0); Mean Corp Hgb Conc 33.0 g/dL (32-36); Mean Corpuscular Volume 90.2 fL (81-99); Mean Platelet Vol. 10.1 fl (6.2-12.0); NRBC Flagged by Analyzer 0 % (0-5); Platelet Count 289 K/mm3 (150-450); RBC Distribution Width CV 13.3 % (11.6-14.6); RBC Distribution Width SD 44.0 fl (35.1-43.9); Red Blood Count 3.76 M/mm3 (4.2-5.4); White Blood Count 10.1 K/mm3 (4.4-11.0)
[2024-12-31 16:39] LABS: AST(SGOT) 26 U/L (<=31); Alanine Aminotransfer ALT/SGPT 30 U/L (<=34); Albumin, Serum 4.2 g/dL (3.4-4.8); Alkaline Phosphatase 132 U/L (35-104); Anion Gap 13 (5-15); BUN 24 mg/dL (4-19); BUN/Creat Ratio 17.1 RATIO (10-20); Calcium,Total 10.8 mg/dL (7.6-11.0); Carbon Dioxide 25.6 mmol/L (21.0-32.0); Chloride 99 mmol/L (98-108); Cholesterol 200 mg/dL (<=200); Ferritin 86 ng/mL (22-378); Globulin 3.0 g/dL (2.2-4.2); Glucose 108 mg/dL (70-99); Low Density Lipoprotein Calc. 105 mg/dL; Potassium 4.3 mmol/L (3.3-5.1); Triglycerides 159 mg/dL; Very Low Density Lipoprotein 32 mg/dL (5-40); Vitamin D,25 Hydroxy 62.0 ng/mL (30-100); cholesterol:hdl ratio screen 3.17
[2024-12-31 17:06] LABS: Iron 76 ug/dL (50-170); Iron Binding Capacity,Total 334 ug/dL (250-450); Iron Binding Capacity,Unsat 258 ug/dL (228-428)
== END | disposition home or self-care (01) ==
LOC: MFPLAB 11:50
PROVIDERS: PCP Family Medicine; Visit Provider Family Medicine
DX: E11.69 Type 2 diabetes mellitus with other specified complication (principal); E11.59 Type 2 diabetes mellitus with other circulatory complications; E03.9 Hypothyroidism, unspecified; E55.9 Vitamin D deficiency, unspecified; D50.9 Iron deficiency anemia, unspecified
CPT/HCPCS: 36415; 80053; 80061; 82306; 82728; 83540; 83550; 84443; 85025

== ENCOUNTER → 2025-02-02 | Outpatient (CLI) | payer MEDICARE, SELFPAY ==
[2025-02-02 13:22] LABS: Barbiturate Urine NEGATIVE (< 200 ng/mL); Benzodiazepine Urine NEGATIVE (< 200 ng/mL); PCP Urine NEGATIVE (< 25 ng/mL); THC Urine NEGATIVE (< 50 ng/mL)
== END | disposition home or self-care (01) ==
LOC: LAB 10:48
PROVIDERS: PCP Family Medicine; Referring Provider Anesthesiology Pain Medicine; Visit Provider Anesthesiology Pain Medicine
DX: F11.20 Opioid dependence, uncomplicated (principal)
CPT/HCPCS: 80307